=== PATIENT | male | born 1965 | race African-American/Black ===

== ENCOUNTER 2023-10-08 13:39 | Outpatient (CLI) | payer OTHER ==
--- NOTE | 2023-10-08 14:40 | Sleep Patient Instructions ---
Sleep Center Visit Summary - Patient Visit Information Reason for Visit: Initial consultation - Patient Instructions Additional Instructions: You will continue with CPAP therapy with pressure set at 5-15 cmH2O. A supply prescription will be sent to your new DME supplier. I have added an order to update your PAP machine. Please call the office to schedule a compliance follow up once you get your new device. Please follow up with the sleep care office one month after obtaining new device. - Clinic Information Contact: [facility] [address] [place] [address] [email or web address] T: [phone]
--- NOTE | 2023-10-08 14:43 | SLEEP CARE CONSULTATION ---
Information from patient questionnaire entered by Kira Ram. I have reviewed and concur with the information entered by Kira Ram. This document represents the service I personally performed and the decisions made by me, Nahomi Lr ARNP. History of Present Illness Service Date and Time: 10/08/2023 1339 Reason for Visit: New patient, Previously diagnosed sleep apnea, sleep apnea on CPAP therapy Date of Onset: 2004 Usual bedtime: 9734-4980 Time it takes to fall asleep: 10-20MINS Snores at night: Yes Observed to quit breathing while asleep: Yes Sleeps alone due to snoring: No Number of times waking at night: 2-3 Reasons for waking at night: reports: Bathroom, Other (DRY MOUTH) Toss, Turn, or Twitch while sleeping: Yes Recalls having dreams: Yes Usually gets out of bed at: 5-6 Morning headache: No Sleepy or fatigued during the day: Yes Ever fallen asleep while driving: No Takes day naps: No Dreams during day naps: No Prior sleep studies: Yes Year and Where: 09/13/2015 [facility], [place], [place] Type of Sleep Study: Polysomnography Additional HPI information: CHETAN BAKER was previously diagnosed to have severe, AHI 30.4, obstructive sleep apnea-hypopnea syndrome on 08/30/2015 through [facility] in [place], [place] and comes in today to establish care for CPAP therapy. - Parasomnia Symptoms Ever been unable to move upon waking from sleep: Yes Walks in sleep: No Talks in sleep: No Ever acted out dreams in sleep: No Ever felt weak in the knees when startled or emotional: No Bothered by creepy, crawly, restless sensations in legs: No Problems with memory or concentration: No CPAP Compliance Data - Data Reviewed with Patient Average duration of nightly device use: 6 hours 12 minutes Compliance rate %: 91 (90/90 days used) Current pressure setting (cmH2O): 5-15 (avg 10.8, max 12.2) Average residual AHI: 1 Central apnea: 0.2 Obstructive apnea: 0.4 Hypopnea: 0.3 Average large leak: 0 L/min Compliance data discussion: He has a Resmed Airsense 10 that was setup 11/16/2015. [facility] not got [facility] since [facility]. He is using a ResMed Airfit P10, medium cushion. Subjective Missed days of use due to: reports: other (fall asleep without it) Patient concerns: reports: dry mouth, nose, throat (dry mouth, occasional when oral venting). denies: aerophagia, mask discomfort, air blowing in eyes, mask leak noise, condensation in mask/hose, nasal congestion, epistaxis Observed to snore while using device: No Current pressure setting perceived as: comfortable On therapy, patient: reports: sleeping better, awakening more refreshed, being more awake and alert during the day, more rested overall. denies: drowsiness while driving Initial [place] Sleepiness Scale score: 9 (10/08/23) Past Medical History Past Medical History: reports: Hypertension, Diabetes (pre-diabetes), Arthritis, Anxiety, Other (PTSD) Social History The patient's occupation is a AM. Patient is and lives in [place]. Have you smoked in the past 12 months: No Cigarettes per day (20/pack): 0 (ONLY WHILE DRINKING SOCIALLY) Quit date: 2003 Alcohol use: Yes Alcohol amount and frequency: MAYBE ONCE A WEEK Caffeine use: Yes Caffeine amount and frequency: COFFEE ONCE OR TWICE A WEEK Family History Family history of sleep disordered breathing: Yes Family Hx Sleep Apnea: Father: Snoring Allergies and Home Medications Known drug allergies: No Drug allergies reviewed: Yes Home medication list reviewed: Yes (as listed) Allergy and home medication list: Allergies No Known Drug Allergies Allergy (Verified 10/06/23 09:38) Home Medications Medication Instructions Recorded Confirmed Last Taken Type Bcaa See Rx Instructions .ROUTE .COMPLEX 10/08/23 Unknown History Burn Am See Rx Instructions .ROUTE .COMPLEX 10/08/23 Unknown History Burn Pm See Rx Instructions .ROUTE .COMPLEX 10/08/23 Unknown History Cetirizine [ZyrTEC] See Rx Instructions .ROUTE .COMPLEX 10/08/23 10/08/23 Unknown History Creatine Monohydrate [Cytotine] See Rx Instructions .ROUTE .COMPLEX 10/08/23 10/08/23 Unknown History Fluticasone [Flonase] See Rx Instructions .ROUTE .COMPLEX 10/08/23 10/08/23 Unknown History Green Test Boost See Rx Instructions .ROUTE .COMPLEX 10/08/23 Unknown History High Boost See Rx Instructions .ROUTE .COMPLEX 10/08/23 Unknown History Meloxicam See Rx Instructions .ROUTE .COMPLEX 10/08/23 10/08/23 Unknown History Test Boost Max See Rx Instructions .ROUTE .COMPLEX 10/08/23 Unknown History Turmeric See Rx Instructions .ROUTE .COMPLEX 10/08/23 10/08/23 Unknown History Vigor Tonic See Rx Instructions .ROUTE .COMPLEX 10/08/23 Unknown History amLODIPine [Norvasc] See Rx Instructions .ROUTE .COMPLEX 10/08/23 10/08/23 U nknown History metFORMIN [Glucophage] See Rx Instructions .ROUTE .COMPLEX 10/08/23 10/08/23 Unknown History Review of Systems Weight gain over past 5 years: 5 Cardiovascular: reports: high blood pressure Gastrointestinal: denies: heartburn Urinary: reports: frequency Neurological: denies: headaches Psychiatric: reports: anxiety Ear/Nose/Throat: reports: wisdom teeth removed. denies: tonsillectomy Musculoskeletal: reports: joint pain Physical Exam Vital signs obtained and entered by: DWAYNE MELENDEZ Blood Pressure: 140/81 (LEFT ARM) Cuff size: regular Heart Rate: 59 O2 Saturation: 97 Height: 5 ft 6 in (PER PT) Weight: 172 lb Body Mass Index: 27.7 BMI Classification: Overweight Neck circumference: 16.5 Heart: regular rate and rhythm Lungs: clear bilaterally Impression and Plan 1. Obstructive Sleep Apnea-Hypopnea Syndrome, severe, with good treatment compliance and good apnea control. On CPAP therapy, the patient has better sleep quality and is more rested overall. He has a Resmed Airsense 10 that was last updated in 2016. The patients CPAP is over 5 years old and of reasonable use. Thus, the CPAP will be updated. A DWO prescription will be made. Compliance guidelines for new device and follow up discussed. Patient's apnea severity and rationale for treatment to reduce apnea, improve sleep quality and reduce cardiovascular and cerebrovascular events was reviewed. I also reviewed the benefit of consistent device use of CPAP for hypertension, pre-diabetes and anxiety. 2. Overweight, unspecified. Currently patients BMI is 27.7. Obesity increases the risk of apnea, CPAP pressure requirements and overall health risks especially cardiovascular and diabetes. Thus patient is advised to lose weight. * Continue auto CPAP pressure at 5-15 cmH2O * Update machine * Update supply prescription * Notify me if snoring with mask or feeling that the pressure is too much or too little * Attempt to lose weight * Call this office if any problems using CPAP * Return for follow up one month after getting supplies, or sooner if concerns arise Counseling Topics: Spare mask, Weight loss health impact Prescriptions: Auto CPAP, Device supplies Follow up with Sleep Care in: other (Compliance follow up) Visit Type: In Office Time Spent with Patient (minutes): 38 Provider Statement: I spent 100% of the Face to Face Visit with the patient with greater than 50% spent counseling the patient and coordination of care.
[2023-10-08 14:47] VITALS: BP 140/81; O2SAT 97
== END 2023-10-08 13:40 | disposition home or self-care (01) ==
LOC: SC 13:39
PROVIDERS: ATTEND Nurse Practitioner Family
DX: G47.33 Obstructive sleep apnea (adult) (pediatric) (principal)
CPT/HCPCS: 99203; 99212

== ENCOUNTER 2024-02-01 11:25 | Outpatient (CLI) | payer OTHER ==
--- NOTE | 2024-02-01 22:09 | Ultrasound Report ---
PROCEDURE: Renal (Retroperitoneal) INDICATIONS: IMPAIRED RENAL TUBULAR FUNCTION TECHNIQUE: Real-time scanning was performed of the retroperitoneal organs, with image documentation. COMPARISON: None. FINDINGS: Kidneys: Kidneys are normal in size. Right kidney measures 10 point cm long; left kidney measures 1 0.2 cm long. Right renal cortical thickness is 1.2 cm; left renal cortical thickness is 1.3 cm. No solid masses, hydronephrosis, or nephrolithiasis. Bladder: Pre-void bladder volume is 310 mL. Post-void residual is 12 mL. Pre-void images demonstra te no intraluminal masses or stones. On pre-void images, bilateral ureteral jets are noted with colo r Doppler interrogation. (Of note, ureteral jets may not be detectable in up to 25% of cases due to insufficient differences in specific gravity between ureteral and bladder urine). Miscellaneous: No free abdominal fluid. IMPRESSION: Unremarkable exam. Reviewed by: Jimena Stevens MD on 02/01/2024 9:59 PM PDT Approved by: Jimena Stevens MD on 02/01/2024 9:59 PM PDT Station ID: [id number]
== END 2024-02-01 11:26 | disposition home or self-care (01) ==
LOC: DI 11:25
PROVIDERS: ATTEND Family Medicine
DX: N25.9 Disorder resulting from impaired renal tubular function, unspecified (principal)

== ENCOUNTER 2024-02-04 10:53 | Outpatient (CLI) | payer OTHER ==
--- NOTE | 2024-02-04 11:45 | Sleep Patient Instructions ---
Sleep Center Visit Summary - Patient Visit Information Reason for Visit: First compliance follow-up - Patient Instructions Additional Instructions: You were here for follow up of CPAP therapy. You will be continued on CPAP therapy with pressure at 5-15 cmH2O. You should follow up with sleep care in 12 months. You may contact us sooner for any questions or concerns. - Clinic Information Contact: [facility] [address] [place] [address] [email or web address] T: [phone]
--- NOTE | 2024-02-04 11:50 | SLEEP CARE CONSULTATION ---
Information from patient questionnaire entered by Kira Ram. I have reviewed and concur with the information entered by Kira Ram. This document represents the service I personally performed and the decisions made by me, Nahomi Lr ARNP. History of Present Illness Service Date and Time: 02/04/2024 1053 Previous diagnosis: Severe, Obstructive Sleep Apnea-Hypopnea Syndrome AHI: 30.4 (on 08/30/2015) Reason for follow up: first compliance after device update Equipment type: CPAP (RESMED Airsense 10 S/U 11/16/23) Equipment obtained from: Other ([facility]; getting supplies) Mask style: Nasal pillows (P-10) Backup mask available: Yes (old mask) Last cushion change: last month Prior sleep studies: Yes [place] and [place] Type of Sleep Study: Polysomnography HPI additional information: CHETAN BAKER was diagnosed to have severe, AHI 30.4, obstructive sleep apnea- hypopnea syndrome and returned today for CPAP therapy first compliance after updating device follow-up. Sleep Study - Results Type of Sleep Study: Polysomnography Prior sleep studies: Yes [place] and Where[place] CPAP Compliance Data - Data Reviewed with Patient Average duration of nightly device use: 6 HRS 25 MINS Compliance rate %: 87 (11/16/23-12/15/23; 30 days used) Current pressure setting (cmH2O): 5-15 Average residual AHI: 1.9 Central apnea: 0.4 Obstructive apnea: 1.1 Hypopnea: 0.3 Average large leak: 0 L/min Subjective Missed days of use due to: reports: other (WORK) Patient concerns: denies: aerophagia, mask discomfort, air blowing in eyes, mask leak noise, condensation in mask/hose, nasal congestion, dry mouth, nose, throat, epistaxis Observed to snore while using device: No Current pressure setting perceived as: comfortable On therapy, patient: reports: sleeping better, awakening more refreshed, being more awake and alert during the day, more rested overall. denies: drowsiness while driving Initial [place] Sleepiness Scale score: 9 (10/08/23) Current [place] Sleepiness Scale score: 6 (02/04/24) Allergies and Home Medications Known drug allergies: No Drug allergies reviewed: Yes Home medication list reviewed: Yes (Lisinopril) Allergy and home medication list: Allergies No Known Drug Allergies Allergy (Verified 02/04/24 11:01) Review of Systems Review of systems same as previous: No (TYPE 2 DIABETES) Physical Exam Vital signs obtained and entered by: KIRA Hensley MA Blood Pressure: 131/79 (LEFT ARM) Cuff size: regular Heart Rate: 63 O2 Saturation: 98 Height: 5 ft 6 in Weight: 161 lb 6.4 oz Weight change since last visit: 9 lb loss Body Mass Index: 26.0 BMI Classification: Overweight Impression and Plan 1. Obstructive Sleep Apnea-Hypopnea Syndrome, severe, with good treatment compliance and good apnea control. On CPAP therapy, the patient has better sleep quality and is more rested overall. He has significant improvement of his sleep apnea and is satisfied with current CPAP therapy. He switched to a nasal pillows mask, P 10, and likes it better than the full face mask. He asks about the AirMini and I advised him that he can check with [facility] to see if he would qualify to have one covered. He is going on deployment for 6 months and would like to have a Travel CPAP. He may contact my office if he needs a prescription. He voiced understanding. Patient's apnea severity and rationale for treatment to reduce apnea, improve sleep quality and reduce cardiovascular and cerebrovascular events was reviewed. I also reviewed the benefit of consistent device use of CPAP for hypertension, diabetes, anxiety. 2. Overweight, unspecified. Currently patients BMI is 26. He has lost weight. Obesity increases the risk of apnea, CPAP pressure requirements and overall health risks especially cardiovascular and diabetes. Thus patient is advised to maintain a healthy weight. * Continue auto CPAP pressure at 5-15 cmH2O * Notify me if snoring with mask or feeling that the pressure is too much or too little * Attempt to lose weight * Call this office if any problems using CPAP * Return for follow up in 12 months, or sooner if concerns arise Counseling Topics: Spare mask, Weight control Follow up with Sleep Care in: 1 year Visit Type: In Office Time Spent with Patient (minutes): 20 Provider Statement: I spent 100% of the Face to Face Visit with the patient with greater than 50% spent counseling the patient and coordination of care.
[2024-02-04 11:59] VITALS: BP 131/79; O2SAT 98
== END 2024-02-04 10:54 | disposition home or self-care (01) ==
LOC: SC 10:53
PROVIDERS: ATTEND Nurse Practitioner Family
DX: G47.33 Obstructive sleep apnea (adult) (pediatric) (principal); E66.3 Overweight; Z68.26 Body mass index [BMI] 26.0-26.9, adult
CPT/HCPCS: 99212; 99213